=== PATIENT | male | born 1985 | race African-American/Black ===

== ENCOUNTER 2018-01-09 11:49 | Emergency (ER) | payer MEDICAID ==
[~2018-01-09] VITALS: Ht 167.6 cm; Wt 63.0 kg
[2018-01-09 11:51] VITALS: BP 127/79
== END 2018-01-09 13:47 | disposition home or self-care (01) ==
LOC: ED 12:30
DX: M79.672 Pain in left foot (principal); M79.671 Pain in right foot; G89.29 Other chronic pain; F17.200 Nicotine dependence, unspecified, uncomplicated
CPT/HCPCS: 99281

== ENCOUNTER 2018-01-26 14:18 | Emergency (ER) | payer MEDICAID ==
[~2018-01-26] VITALS: Ht 167.6 cm; Wt 65.0 kg
[2018-01-26 14:29] VITALS: BP 108/78
== END 2018-01-26 15:47 | disposition home or self-care (01) ==
LOC: ED 14:46
DX: F15.10 Other stimulant abuse, uncomplicated (principal); F12.10 Cannabis abuse, uncomplicated; R11.14 Bilious vomiting
CPT/HCPCS: 99283